=== PATIENT | female | born 1975 | race African-American/Black ===

== ENCOUNTER → 2016-05-25 | Outpatient (CLI) | payer OTHER ==
[~2016-05-25] MED LIST: 12 HOUR DECONG120 M1 PO; ALEVE220 MG PO; AMITRIPTYLINE H25 MG PO; AMITRIPTYLINE H75 MG PO; AMOXICILLIN875 MG PO; AUGMENTIN875 MG PO; BENTYL10 MG PO; BENTYL20 MG PO; BUTALB-ACETAMI1 EAC2 PO; CIPRO500 MG PO; CLEOCIN150 MG PO; CLEOCIN300 MG PO; CLINDAMYCIN HC150 MG PO; DIFLUCAN150 MG PO; DILAUDID2 MG PO; ERGOCALCIF50000 UNIT PO; FISH OIL 1,0001 EAC7 PO; FISH OIL 500 M1 EAC2 PO; FISH OIL500 MG PO; FLAGYL500 MG PO; FLORASTOR250 MG PO; GLUCOSAMINE1000 MG PO; IBUPROFEN800 MG PO; NAPROSYN500 MG PO; NORCO 5/3251 TABLET PO; PERCOCET 5/31 TABLET PO; TRAMADOL HCL50 MG PO; VANCOMYCIN HCL125 MG PO; VANCOMYCIN125 MG/2.5 PO; VITAMIN D-32000 UNI2 PO; ZOFRAN4 MG PO
== END | disposition home or self-care (01) ==
LOC: NUC 08:00
DX: E05.20 Thyrotoxicosis with toxic multinodular goiter without thyrotoxic crisis or storm (principal); E05.90 Thyrotoxicosis, unspecified without thyrotoxic crisis or storm
CPT/HCPCS: 78014; 78999; A9512; A9531

== ENCOUNTER 2017-03-01 09:25 | Emergency (ER) | payer OTHER ==
[~2017-03-01] VITALS: Ht 167.6 cm; Wt 68.2 kg
[2017-03-01 10:18] LABS: HEMOGLOBIN 13.3 G/DL (11.9-15.5); MCH 30.6 PG (29.0-34.0); MCV 87.4 FL (83-99); RBC DIS.WIDTH-CV 13.2 % (11.8-14.6); RBC DIS.WIDTH-SD 42.3 % (39-53); RED BLOOD COUNT 4.35 M/uL (3.80-5.20); WHITE BLOOD COUNT 6.8 K/uL (4.1-10.2)
[2017-03-01 10:25] LABS: ALBUMIN 4.4 g/dL (3.2-4.8); CHLORIDE 105 mEq/L (99-109)
[2017-03-01 10:26] LABS: POTASSIUM 3.9 mEq/L (3.7-5.4); SODIUM 140 mEq/L (136-147)
[2017-03-01 10:28] LABS: GLUCOSE 100 mg/dL (70-99); TOTAL PROTEIN 7.1 g/dL (6.4-8.3)
[2017-03-01 10:30] LABS: TOTAL BILIRUBIN 0.5 mg/dL (0.0-1.0)
[2017-03-01 10:31] LABS: ALKALINE PHOSPHATASE 49 IU/L (3-129); CREATININE 0.8 mg/dL (0.6-1.3); GFR ESTIMATE (CALCULATED) > 59 mL/min/
[2017-03-01 10:33] LABS: AST (GOT) 16 IU/L (2-34); UREA NITROGEN (BUN) 5 mg/dL (9-23)
[2017-03-01 10:34] LABS: ALT (GPT) 9 IU/L (3-49)
[2017-03-01 10:43] LABS: QUANTITATIVE HCG < 4.0 MIU/ML
[2017-03-01 10:57] LABS: PLAT.SUFFICIENCY DECREASED; PLATELET COUNT 100 K/uL (156-360)
[2017-03-01 11:12] LABS: APPEARANCE SL.HAZY ((CLEAR)); BILIRUBIN NEGATIVE; BLOOD NEGATIVE; COLOR YELLOW ((YELLOW)); GLUCOSE (STRIP) NEGATIVE; KETONES NEGATIVE; LEUKOCYTES NEGATIVE; NITRITE NEGATIVE; PROTEIN (STRIP) NEGATIVE; SPECIFIC GRAVITY 1.011 (1.000-1.030); UROBILINOGEN 0.2 MG/DL (0.2-1.0)
[2017-03-01 11:16] LABS: BACTERIA RARE /HPF; CALCIUM OXALATE CRYSTALS 2+ /HPF; EPITHELIAL CELLS 2+ /HPF; HYALINE CASTS 0-5 /LPF; MUCUS TRACE /LPF; RED BLOOD CELLS 0-5 /HPF (0-5); UCUL ADDED? NO; WHITE BLOOD CELLS 0-5 /HPF (0-5)
[2017-03-01] MEDS ORDERED: ZITHROMAX Z-PA250 MG PO (12:47)
[2017-03-01 13:02] VITALS: BP 101/79
== END 2017-03-01 13:09 | disposition home or self-care (01) ==
LOC: EME 09:25
DX: J32.9 Chronic sinusitis, unspecified (principal); J40 Bronchitis, not specified as acute or chronic; Z88.0 Allergy status to penicillin; F17.200 Nicotine dependence, unspecified, uncomplicated
CPT/HCPCS: 71046; 80053; 81003; 84702; 85027; 87651 90; 99281; 99284